=== PATIENT | male | born 1950 | race Caucasian/White ===

== ENCOUNTER → 2016-08-06 | Outpatient (CLI) | payer OTHER ==
[~2016-08-06] VITALS: Ht 180.3 cm; Wt 90.7 kg
[~2016-08-06] MED LIST: LIDOCAINE 2% INJ 100 MG/5 ML SDV (FOR ANES.) As Ordered ONE; NS 1,000 ML IV ONE; OMEP40CA2 PO; PROPOFOL 500 MG/50 ML VIAL As Ordered ONE; VITA100037 PO; ZOCO40TA PO
--- NOTE | 2016-08-06 11:09 | ROOR ---
Patient Name: Se Gamez Procedure Date: 08/06/2016 10:53 AM Date of : 1950 Age: 65 Room: [facility] Gender: Male Note Status: Finalized Procedure: Upper GI endoscopy Indications: Suspected esophageal reflux, Laryngitis Providers: Immanuel LOPES MD Referring MD: VALERIY TUTTLE MD Requesting Provider: Medicines: Monitored Anesthesia Care Complications: No immediate complications. Procedure: Pre-Anesthesia Assessment: - The heart rate, respiratory rate, oxygen saturations, blood pressure, adequacy of pulmonary ventilation, and response to care were monitored throughout the procedure. The Endoscope was introduced through the mouth, and advanced to the second part of duodenum. The upper GI endoscopy was accomplished without difficulty. The patient tolerated the procedure well. Findings: Very small (insignificant) Hiatal Hernia. The esophagus was normal. The stomach was normal. The examined duodenum was normal. Impression: - Very small (insignificant) Hiatal Hernia. - Normal esophagus. - Normal stomach. - Normal examined duodenum. - No specimens collected. Recommendation: - Continue present medications. - Follow an antireflux regimen. Immanuel Lopes MD Immanuel LOPES MD 08/06/2016 11:08:59 AM This report has been signed electronically. Number of Addenda: 0 Note Initiated On: 08/06/2016 10:53 AM Estimated Blood Loss: Estimated blood loss: none.
[2016-08-06 11:45] VITALS: BP 177/81
== END ==
LOC: M OPP 09:11
PROVIDERS: ATTEND Internal Medicine Gastroenterology
DX: J04.0 Acute laryngitis (principal); K21.9 Gastro-esophageal reflux disease without esophagitis; E78.00 Pure hypercholesterolemia, unspecified; Z79.899 Other long term (current) drug therapy

== ENCOUNTER → 2019-04-04 | Outpatient (REF) | payer MEDICARE ==
[~2019-04-04] MED LIST changes: -LIDOCAINE 2% INJ 100 MG/5 ML SDV (FOR ANES.) As Ordered ONE; -NS 1,000 ML IV ONE; -OMEP40CA2 PO; +OMEP40CA97 PO; -PROPOFOL 500 MG/50 ML VIAL As Ordered ONE; -VITA100037 PO; +VITA100067 PO
== END ==
LOC: M LAB LCGH 15:35
PROVIDERS: ATTEND Nurse Practitioner Family
DX: D48.9 Neoplasm of uncertain behavior, unspecified (principal)